=== PATIENT | male | born 1935 | race Caucasian/White ===

== ENCOUNTER 2016-09-07 08:41 | Emergency (ER) | payer MEDICARE, BC ==
[2016-09-07] MEDS ORDERED: Aspirin 81 MG Tab.Chew PO ONE (08:55)
--- NOTE | 2016-09-07 09:00 | EDM.PDOC ---
ED UPPER BACK/NECK PAIN/INJURY - General Chief Complaint: Back Pain or Injury Stated Complaint: BACK PAIN Time Seen by Provider: 09/07/16 08:45 Source of Information: Reports: Patient History Limitations: Reports: No limitations - History of Present Illness INITIAL COMMENTS - FREE TEXT/NARRATIVE: This 80 yo male patient reports to the ED from the [facility] with a 4 day history of increasing pain in his back. The patient reports his pain started Sunday and has been getting progressively worse. The patient reports he took 2 Ainsworth (5/325) this morning, but has had no symptom relief. The patient was seen by the Chiropractor yesterday (had a message and accupuncture) with some improvement during treatment. The patient has a history of chronic neck pain ( neurosurg. consult resulted in non-surgical management). The patient also has a history of CHF and CAD. The patient reports his heart is currently functioning at 25% of normal and is supposed to be scheduled for a pacemaker sometime in the near future. The patient denies any recent history of falls or injuries. The patient's personal history, family history and medication list were reviewed. 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: Other medication(s) (Ainsworth) - Related Data Allergies/ADRs: Allergies Allergy/AdvReac Type Severity Reaction Status Date / Time Iodinated Contrast Media - Allergy Hives Verified 09/07/16 09:19 Oral and lisinopril Allergy Nausea Verified 09/07/16 09:19 morphine Allergy Nausea Verified 07/20/15 18:12 hydrochlorothiazide AdvReac Dizziness Verified 09/07/16 09:19 olmesartan medoxomil AdvReac Nausea Verified 09/07/16 09:19 [From Benicar] mold Allergy Itching Uncoded 09/07/16 09:19 tape Allergy Itching Uncoded 07/20/15 18:12 xray dye Allergy Hives Uncoded 07/20/15 18:12 Home Meds: Home Meds Ascorbic Acid [Vitamin C] 1,000 mg PO DAILY 05/20/13 [History] Aspirin [Ecotrin] 325 mg PO DAILY 05/20/13 [History] Cholecalciferol (Vitamin D3) [Vitamin D] 2,000 unit PO DAILY 05/20/13 [History] Furosemide [Furosemide] 40 mg PO BID 05/20/13 [History] Nitroglycerin [Nitrostat] 0.4 mg PO ATDISCHARGE PRN 05/20/13 [History] Folic Acid 0.8 mg PO DAILY 11/25/14 [History] Magnesium Oxide 250 mg PO DAILY 11/25/14 [History] Zinc 50 mg PO DAILY 11/25/14 [History] Carvedilol 6.25 mg PO BID 09/07/16 [History] Hydrocodone/Acetaminophen [Hydrocodon-Acetaminophen 5-325] 1 each PO ASDIRECTED 09/07/16 [History] Metolazone [Zaroxolyn] 5 mg PO DAILY 09/07/16 [History] Omeprazole 20 mg PO DAILY 09/07/16 [History] Potassium Chloride [Klor-Con M20] 20 meq PO BID 09/07/16 [History] Tamsulosin HCl [Flomax] 0.4 mg PO DAILY 09/07/16 [History] Vitamin K2 0 mcg PO ASDIRECTED 09/07/16 [History] Past Medical History Other Cardiovascular History: DYSLIPIDEMIA Other Gastrointestinal History: GI bleed Other Endocrine/Metabolic History: IMPAIRED FASTING BLOOD SUGAR - Past Surgical History Other Cardiovascular Surgeries/Procedures: AORTIC VALVE REPAIR, MITRAL VALVE REPAIR GI Surgical History: Reports: Colonoscopy Other Musculoskeletal Surgeries/Procedures:: JOINT REPLACEMENT R KNEE & R SHOULDER Social & Family History - Tobacco Use Smoking Status *Q: Never Smoker Second Hand Smoke Exposure: No - Caffeine Use Caffeine Use: Reports: None - Alcohol Use Days Per Week of Alcohol Use: 7 Number of Drinks Per Day: 1 Total Drinks Per Week: 7 - Recreational Drug Use Recreational Drug Use: No - Living Situation & Occupation Living situation: Reports: Occupation: retired ED ROS GENERAL - Review of Systems Review Of Systems: ROS reveals no pertinent complaints other than HPI. ED EXAM, UPPER BACK/NECK PAIN - Physical Exam Exam: See Below Exam Limited By: No limitations General Appearance: alert, WD/WN, moderate distress, obese Eye Exam: bilateral eye: EOMI, normal inspection, PERRL Nose Exam: normal inspection, normal mucousa, no blood Throat/Mouth Exam: Normal inspection, Normal lips, Normal teeth, Normal gums, Normal oropharynx, Normal voice, No airway compromise Head Exam: atraumatic, normocephalic Neck Exam: tenderness (chronic neck pain), tender lateral (bilateral) Nexus Criteria: No: posterior, midline cervical tenderness, evidence of intoxication, altered level of consciousness, focal neurological deficit, painful distracting injuries Cardiovascular/Respiratory: regular rate, rhythm, no M/R/G, normal peripheral pulses GI/Abdominal: normal bowel sounds, soft, non tender, no organomegaly, no distention, no abnormal bruit, no mass, other (obese) (Male) Exam: Deferred Rectal (Males) Exam: Deferred Back Exam: normal inspection, decreased range of motion (mid upper back ), paraspinal tenderness (mid upper back ), vertebral tenderness (mid upper back) Extremities: normal inspection, normal range of motion, non-tender, no pedal edema, normal capillary refill Neurologic: medical appointment scheduler II-XII nml as tested, no motor/sensory deficits, alert, normal mood/affect, oriented x 3 Psychiatric: normal affect, normal mood Skin Exam: Normal color, Warm/dry Lymphatic: no adenopathy Course - Vital Signs Last Recorded V/S: Last Vital Signs Temp 36.1 C 09/07/16 08:46 Pulse 91 09/07/16 09:41 Resp 18 09/07/16 09:41 BP 106/60 09/07/16 09:41 Pulse Ox 94 L 09/07/16 09:41 - Orders/Labs/Meds Orders: Active Orders 24 hr Category Date Time Status EKG Documentation Completion [RC] URGENT Care 09/07/16 08:51 Active Labs: Laboratory Tests 09/07/16 09/07/16 09/07/16 Range/Units 09:12 09:12 10:56 WBC 8.7 (5.0-10.0) 10^3/uL RBC 4.57 L (4.6-6.2) 10^6/uL Hgb 13.0 L (14.0-18.0) g/dL Hct 40.5 (40.0-54.0) % MCV 88.6 (80-100) fL MCH 28.4 (27.0-34.0) pg MCHC 32.1 L (33.0-35.0) g/dL Plt Count 181 (150-450) 10^3/uL Neut % (Auto) 78.2 H (42.2-75.2) % Lymph % (Auto) 4.8 L (20.5-50.1) % [place] % (Auto) 14.7 H (2-8) % Eos % (Auto) 1.7 (1.0-3.0) % Baso % (Auto) 0.6 (0.0-1.0) % Sodium 137 (135-145) mmol/L Potassium 2.7 L (3.6-5.0) mmol/L Chloride 96 L (101-111) mmol/L Carbon Dioxide 30.0 (21.0-31.0) mmol/L Anion Gap 13.7 BUN 45 H (7-18) mg/dL Creatinine 1.3 (0.6-1.3) mg/dL Est Cr Clr Drug Dosing 42.26 mL/min Estimated GFR (MDRD) 53 BUN/Creatinine Ratio 34.61 Glucose 108 H (74-105) mg/dL Calcium 8.3 L (8.4-10.2) mg/dl Total Bilirubin 1.5 H (0.2-1.0) mg/dL AST 38 (10-42) IU/L ALT 17 (10-60) IU/L Alkaline Phosphatase 244 H (42-121) IU/L Troponin I 0.05 H* (0.00-0.02) ng/ml Total Protein 6.5 L (6.7-8.2) g/dl Albumin 3.1 L (3.2-5.5) g/dl Globulin 3.4 Albumin/Globulin Ratio 0.91 Urine Color Yellow (YELLOW) Urine Appearance Clear (CLEAR) Urine pH 5.5 (5.0-9.0) Ur Specific [place] 1.010 (1.005-1.030) Urine Protein Negative (NEGATIVE) Urine Glucose (UA) Negative (NEGATIVE) Urine Ketones Negative (NEGATIVE) Urine Occult Blood Negative (NEGATIVE) Urine Nitrite Negative (NEGATIVE) Urine Bilirubin Negative (NEGATIVE) Urine Urobilinogen 0.2 (0.2-1.0) mg/dL Ur Leukocyte Esterase Negative (NEGATIVE) Urine RBC 0-5 /HPF Urine WBC 5-10 H (0-5/HPF) /HPF Ur Epithelial Cells Few /HPF Urine Bacteria Few (0-FEW/HPF) /HPF Meds: Medications Discontinued Medications Generic Name Dose Route Start Last Admin Trade Name Marcelino PRN Reason Stop Dose Admin Aspirin 324 mg 09/07/16 08:55 09/07/16 08:59 Aspirin PO 09/07/16 08:56 324 mg ONETIME ONE Administration Hydromorphone HCl 0.5 mg 09/07/16 09:44 09/07/16 09:52 Dilaudid IVPUSH 09/07/16 09:45 0.5 mg ONETIME ONE Administration Potassium Chloride 10 meq/ 100 mls @ 100 mls/hr 09/07/16 09:44 09/07/16 09:56 Premix IV 09/07/16 10:43 100 mls/hr ONETIME ONE Administration - Re-Assessments/Exams Free Text/Narrative Re-Assessment/Exam: 09/07/16 09:53 The patient and his were advised of the examination, lab and chest x-ray results. An order was placed for x-rays of his T-spine, IV potassium and IV dilaudid. Departure - Departure Time of Disposition: 11:28 Disposition: Home, Self-Care 01 Condition: fair Clinical Impression: Thoracic spine pain Instructions: Back Pain, Adult, [id number], Pain Medicine Instructions, Easy- to-Read, Muscle Strain, [id number], Chronic Back Pain Forms: ED Department Discharge Care Plan Goals: The patient was advised of the examination, lab, EKG, and x-ray results during the visit. The patient was given an IV dose of Dilaudid while in the ED. The patient was discharged with a script for Percocet (5/325) #20 to take 1 by mouth every 8 hours. The patient was encouraged to use MiraLax to keep his bowels moving. If the patient has any additional symptoms or further concerns, the patient should follow-up with his primary care facility or return to the emergency department. - My Orders Last 24 Hours: My Active Orders 09/07/16 08:51 EKG Documentation Completion [RC] URGENT - Assessment/Plan Last 24 Hours: My Active Orders 09/07/16 08:51 EKG Documentation Completion [RC] URGENT
--- NOTE | 2016-09-07 09:30 | CR ---
Clinical history: 80-year-old male with history of heart disease and now upper back pain. Interpretation: AP portable chest documents total orthopedic replacement right shoulder and sternoto my wires with mediastinal clips. Chronic cardiomegaly with additional increased pulmonary venous congestion and apparent small depend ent pleural effusions typical of cardiovascular decompensation since 20 July 2015 (comparison film). No lung mass, hilar lymphadenopathy or focal lobar pneumonia. CONCLUSION: Mild CHF. Myocardial infarction?
[2016-09-07] MEDS ORDERED: Potassium Chloride 10 MEQ in Premix Bag 1 BAG IV ONE (09:44)
[2016-09-07] MEDS ORDERED: HYDROmorphone 1 MG/ML Syringe IVPUSH ONE (09:44)
--- NOTE | 2016-09-07 11:01 | CR ---
Clinical history: 80-year-old male upper back pain. Interpretation: General osteopenia and mild kyphosis mid dorsal spine. 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 interspace narrowing, endplate sclerosis and hypertrophic marginal spondylosis. No sign of pathologic skeletal lesion, definite fracture or spondylolisthesis however.... there is subtle decreased vertical height T6 vertebral body and if there is point tenderness to this area suggest MRI (STIR sequences) may prove helpful. Posterior ribs unremarkable. Sternotomy wires and pronounced cardiomegaly. Orthopedic prosthesis right shoulder.
[2016-09-07 12:12] VITALS: BP 106/70
--- NOTE | 2016-09-11 13:24 | EKG ---
09/07/2016- IESHA FOX - Twelve-lead EKG shows atrial fibrillation with heart rate of 94, nonspecific ST- T wave changes noted on lead V2, V3, with peaked T-waves, and nonspecific interventricular conduction delay with possible bundle branch block. No significant ST elevation or ST depression noted on this 12-lead EKG. [facility] /[id number]
== END 2016-09-07 11:46 | disposition home or self-care (01) ==
LOC: DL.ED 08:41
DX: M54.6 Pain in thoracic spine (principal); E78.5 Hyperlipidemia, unspecified; Z91.09 Other allergy status, other than to drugs and biological substances; Z91.041 Radiographic dye allergy status; Z88.5 Allergy status to narcotic agent; Z88.8 Allergy status to other drugs, medicaments and biological substances; Z79.82 Long term (current) use of aspirin; Z79.899 Other long term (current) drug therapy
CPT/HCPCS: 36415; 71010; 72070; 80053; 81001; 84484; 85025; 93005; 96365; 96375; 99284; A9270; J1170; J3480

== ENCOUNTER 2019-05-12 10:30 | Emergency (ER) | payer MEDICARE, BC ==
[2019-05-12 10:53] VITALS: BP 126/63; PULSE 76
--- NOTE | 2019-05-12 11:09 | EDM.PDOC ---
ED HPI GENERAL MEDICAL PROBLEM - General Chief Complaint: General Stated Complaint: LOW POTASSIUM Time Seen by Provider: 05/12/19 11:01 Source of Information: Reports: Patient History Limitations: Reports: No Limitations - History of Present Illness INITIAL COMMENTS - FREE TEXT/NARRATIVE: This 83 yo male patient was sent to the ED from the [facility] due to low potassium levels. The patient reports he was having routine labs done today for an appointment later this week. After the patient returned to his home, the patient was called and told to come to the ED due to his potassium level being 2.6. The patient reports he is currently on diuretics to control his fluid levels and has had multiple changes through [place]. The patient reports he has had several similar episodes of low potassium levels. The patient report he currently feels "normal", but understands what is happening with his labs. Onset: Today Duration: Constant Location: Reports: Other Quality: Reports: Other Severity: Moderate Improves with: Reports: None Worsens with: Reports: None Associated Symptoms: Reports: No Other Symptoms - Related Data Allergies Allergy/AdvReac Type Severity Reaction Status Date / Time Iodinated Contrast Media Allergy Hives Verified 05/12/19 10:27 [Iodinated Contrast Media - Oral and] hydrochlorothiazide AdvReac Dizziness Verified 05/12/19 10:27 lisinopril AdvReac Nausea Verified 05/12/19 10:27 morphine AdvReac Nausea Verified 05/12/19 10:27 olmesartan medoxomil AdvReac Nausea Verified 05/12/19 10:27 [From Benicar] mold Allergy Itching Uncoded 05/12/19 10:27 tape Allergy Itching Uncoded 05/12/19 10:27 xray dye Allergy Hives Uncoded 05/12/19 10:27 Home Meds: Home Meds Ascorbic Acid [Vitamin C] 1,000 mg PO DAILY 05/20/13 [History] Aspirin [Ecotrin EC] 325 mg PO DAILY 05/20/13 [History] Nitroglycerin [Nitrostat] 0.4 mg PO ASDIRECTED PRN 05/20/13 [History] Folic Acid 800 mcg PO DAILY 11/25/14 [History] Zinc 50 mg PO DAILY 11/25/14 [History] Metolazone [Zaroxolyn] 5 mg PO Q3D 09/07/16 [History] Vitamin K2 1 tab PO DAILY 09/07/16 [History] carvediloL [Carvedilol] 6.25 mg PO BID 09/07/16 [History] Potassium Chloride 10 meq PO DAILY 04/09/19 [History] Sodium Bicarbonate 650 mg PO DAILY 04/09/19 [History] Acetaminophen [Acetaminophen 8 Hour] 650 mg PO Q8H PRN 05/12/19 [History] Albuterol/Ipratropium [Combivent Respimat] 2 puff IH Q6H PRN 05/12/19 [History] Febuxostat [Uloric] 80 mg PO DAILY 05/12/19 [History] Ferrous Sulfate 325 mg PO DAILY 05/12/19 [History] Furosemide [Lasix] 80 mg PO BID 05/12/19 [History] Saw/Py/Net/Pumpk/Beta/Ly/Zn/Cu [Prostate Control Softgel] 1 each PO BID [History] Spironolactone [Aldactone] 25 mg PO DAILY 05/12/19 [History] hydrOXYzine HCL [Hydroxyzine HCl] 25 mg PO DAILY PRN 05/12/19 [History] traMADol [Ultram] 50 mg PO Q6H PRN 05/12/19 [History] Past Medical History HEENT History: Reports: Allergic Rhinitis, Impaired Vision Cardiovascular History: Reports: Bypass, CAD, Heart Failure, Heart Murmur, High Cholesterol, Hypertension, Pulmonary Hypertension, Other (See Below) Other Cardiovascular History: DYSLIPIDEMIA Respiratory History: Reports: COPD, Sleep Apnea Gastrointestinal History: Reports: Diverticulosis Other Gastrointestinal History: GI bleed Genitourinary History: Reports: Renal Disease Musculoskeletal History: Reports: Osteoarthritis, Other (See Below) Other Musculoskeletal History: neck pain. spondylosis of cervical region Other Neuro History: degenerative disc disease (cervical). cervical stenosis of spinal canal Psychiatric History: Reports: None Endocrine/Metabolic History: Reports: Obesity/BMI 30+ Other Endocrine/Metabolic History: IMPAIRED FASTING BLOOD SUGAR Hematologic History: Reports: Anemia Immunologic History: Reports: None Oncologic (Cancer) History: Reports: None Dermatologic History: Reports: Cellulitis - Infectious Disease History Infectious Disease History: Reports: None - Past Surgical History Cardiovascular Surgical History: Reports: Coronary Artery Bypass Social & Family History - Family History Family Medical History: Noncontributory - Tobacco Use Smoking Status *Q: Never Smoker Second Hand Smoke Exposure: No - Caffeine Use Caffeine Use: Reports: Coffee - Recreational Drug Use Recreational Drug Use: No - Living Situation & Occupation Living situation: Reports: Occupation: Retired ED ROS GENERAL - Review of Systems Review Of Systems: Comprehensive ROS is negative, except as noted in HPI. ED EXAM, GENERAL - Physical Exam Exam: See Below Exam Limited By: No Limitations General Appearance: Alert, WD/WN, No Apparent Distress Eye Exam: Bilateral Eye: EOMI, Normal Inspection, PERRL Ears: Normal External Exam, Normal Canal, Hearing Grossly Normal, Normal TMs Nose: Normal Inspection, Normal Mucosa, No Blood Throat/Mouth: Normal Inspection, Normal Lips, Normal Teeth, Normal Gums, Normal Oropharynx, Normal Voice, No Airway Compromise Head: Atraumatic, Normocephalic Neck: Normal Inspection Respiratory/Chest: No Respiratory Distress, Lungs Clear, Normal Breath Sounds, No Accessory Muscle Use, Chest Non-Tender Cardiovascular: Normal Peripheral Pulses, Regular Rate, Rhythm, No Edema, No Gallop, No JVD, No Murmur, No Rub GI/Abdominal: Normal Bowel Sounds, Soft, Non-Tender, No Organomegaly, No Distention, No Abnormal Bruit, No Mass (Male) Exam: Deferred Rectal (Males) Exam: Deferred Back Exam: Normal Inspection, Full Range of Motion, NT Extremities: Normal Range of Motion, Non-Tender, No Pedal Edema, Normal Capillary Refill, Other (The patient has a wound on his left anterior calf that appears to be healing well. There is minimal drainage. ) Neurological: Alert, Oriented, CN II-XII Intact, Normal Cognition, Normal Gait, Normal Reflexes, No Motor/Sensory Deficits Psychiatric: Normal Affect, Normal Mood Skin Exam: Warm, Dry, Normal Color, No Rash Lymphatic: No Adenopathy Course - Vital Signs Last Recorded V/S: Last Vital Signs Temp 36.6 C 05/12/19 10:51 Pulse 76 05/12/19 10:51 Resp 16 05/12/19 10:51 BP 126/63 05/12/19 10:51 Pulse Ox 100 05/12/19 10:51 - Orders/Labs/Meds Labs: Laboratory Tests 05/12/19 05/12/19 05/12/19 Range/Units 11:10 11:10 11:10 WBC 7.2 (5.0-10.0) 10^3/uL RBC 3.75 L (4.6-6.2) 10^6/uL Hgb 10.7 L (14.0-18.0) g/dL Hct 34.5 L (40.0-54.0) % MCV 92.0 (80-100) fL MCH 28.5 (27.0-34.0) pg MCHC 31.0 L (33.0-35.0) g/dL Plt Count 186 (150-450) 10^3/uL Neut % (Auto) 78.7 H (42.2-75.2) % Lymph % (Auto) 5.4 L (20.5-50.1) % [place] % (Auto) 12.7 H (2-8) % Eos % (Auto) 2.6 (1.0-3.0) % Baso % (Auto) 0.6 (0.0-1.0) % Sodium 138 (135-145) mmol/L Potassium 2.6 L (3.6-5.0) mmol/L Chloride 98 L (101-111) mmol/L Carbon Dioxide 30.0 (21.0-31.0) mmol/L Anion Gap 12.6 BUN 70 H (7-18) mg/dL Creatinine 1.4 H (0.6-1.3) mg/dL Est Cr Clr Drug Dosing 41.38 mL/min Estimated GFR (MDRD) 49 BUN/Creatinine Ratio 50.00 Glucose 125 H (74-105) mg/dL Calcium 8.6 (8.4-10.2) mg/dl Total Bilirubin 1.9 H (0.2-1.0) mg/dL AST 47 H (10-42) IU/L ALT 21 (10-60) IU/L Alkaline Phosphatase 196 H (42-121) IU/L B-Natriuretic Peptide 410 H (0-100) pg/ml Total Protein 6.2 L (6.7-8.2) g/dl Albumin 2.6 L (3.2-5.5) g/dl Globulin 3.6 Albumin/Globulin Ratio 0.72 05/12/19 Range/Units 15:45 WBC (5.0-10.0) 10^3/uL RBC (4.6-6.2) 10^6/uL Hgb (14.0-18.0) g/dL Hct (40.0-54.0) % MCV (80-100) fL MCH (27.0-34.0) pg MCHC (33.0-35.0) g/dL Plt Count (150-450) 10^3/uL Neut % (Auto) (42.2-75.2) % Lymph % (Auto) (20.5-50.1) % [place] % (Auto) (2-8) % Eos % (Auto) (1.0-3.0) % Baso % (Auto) (0.0-1.0) % Sodium (135-145) mmol/L Potassium 2.7 L (3.6-5.0) mmol/L Chloride (101-111) mmol/L Carbon Dioxide (21.0-31.0) mmol/L Anion Gap BUN (7-18) mg/dL Creatinine (0.6-1.3) mg/dL Est Cr Clr Drug Dosing mL/min Estimated GFR (MDRD) BUN/Creatinine Ratio Glucose (74-105) mg/dL Calcium (8.4-10.2) mg/dl Total Bilirubin (0.2-1.0) mg/dL AST (10-42) IU/L ALT (10-60) IU/L Alkaline Phosphatase (42-121) IU/L B-Natriuretic Peptide (0-100) pg/ml Total Protein (6.7-8.2) g/dl Albumin (3.2-5.5) g/dl Globulin Albumin/Globulin Ratio Meds: Medications Discontinued Medications Generic Name Dose Route Start Last Admin Trade Name Freq PRN Reason Stop Dose Admin Potassium Chloride 20 meq/ 100 mls @ 50 mls/hr 05/12/19 11:42 05/12/19 12:06 Premix IV 05/12/19 13:41 50 mls/hr ONETIME ONE Administration Lidocaine HCl 1 ml 05/12/19 11:44 05/12/19 12:06 Xylocaine-Mpf 1% INJECT 05/12/19 11:45 1 ml ONETIME ONE Administration Potassium Chloride 40 meq 05/12/19 16:02 05/12/19 16:16 Klor-Con 10 PO 05/12/19 16:03 40 meq ONETIME ONE Administration Departure - Departure Time of Disposition: 16:33 Disposition: Home, Self-Care 01 Condition: Fair Clinical Impression: Hypokalemia - Discharge Information *PRESCRIPTION DRUG MONITORING PROGRAM REVIEWED*: Not Applicable *COPY OF PRESCRIPTION DRUG MONITORING REPORT IN PATIENT YISSEL: Not Applicable Instructions: Hypokalemia Forms: ED Department Discharge Care Plan Goals: The patient was given IV potassium and oral potassium while in the hospital. The patient was encouraged to follow-up with his primary care facility as scheduled. If the patient has any additional symptoms or concerns, the patient should either return to the emergency department or visit his primary care facility. Sepsis Event Note - Evaluation Sepsis Screening Result: No Definite Risk - Focused Exam Vital Signs: Vital Signs Temp Pulse Resp BP Pulse Ox 05/12/19 10:51 36.6 C 76 16 126/63 100 Date Exam was Performed: 05/12/19 Time Exam was Performed: 16:33
[2019-05-12 11:39] LABS: ANION GAP 12.6
[2019-05-12] MEDS ORDERED: Potassium Chloride 20 MEQ in Premix Bag 1 BAG IV ONE (11:42)
[2019-05-12] MEDS ORDERED: Lidocaine 1% 30 ML SDV INJECT ONE (11:44)
[2019-05-12] MEDS ORDERED: Potassium Chloride 10 MEQ Tab.ER PO ONE (16:02)
== END 2019-05-12 17:00 | disposition home or self-care (01) ==
LOC: DL.ED 10:30
DX: E87.6 Hypokalemia (principal); I25.10 Atherosclerotic heart disease of native coronary artery without angina pectoris; I11.0 Hypertensive heart disease with heart failure; I50.9 Heart failure, unspecified; J44.9 Chronic obstructive pulmonary disease, unspecified; E66.9 Obesity, unspecified; Z91.041 Radiographic dye allergy status; Z88.8 Allergy status to other drugs, medicaments and biological substances; Z88.5 Allergy status to narcotic agent; Z91.048 Other nonmedicinal substance allergy status; Z79.82 Long term (current) use of aspirin; Z79.899 Other long term (current) drug therapy; Z68.30 Body mass index [BMI] 30.0-30.9, adult
CPT/HCPCS: 36415; 80053; 83880; 84132; 85025; 96365; 96366; 99284-25; A9270-GY; J2001; J3480

== ENCOUNTER 2020-03-06 11:31 | Emergency (ER) | payer MEDICARE, BC ==
[~2020-03-06 11:31] MED LIST: Diltiazem 25 MG/5 ML SDV IVPUSH ONE
[2020-03-06] MEDS ORDERED: Furosemide 40 MG/4 ML VIAL IVPUSH ONE ×2 (11:43→17:12)
--- NOTE | 2020-03-06 11:49 | EDM.PDOC ---
ED HPI GENERAL MEDICAL PROBLEM - General Chief Complaint: Cardiovascular Problem Stated Complaint: AMBULANCE Time Seen by Provider: 03/06/20 11:40 Source of Information: Reports: EMS, Family () History Limitations: Reports: No Limitations - History of Present Illness INITIAL COMMENTS - FREE TEXT/NARRATIVE: This 84 yo male patient was brought to the ED by [facility] and [facility] due to increased shortness of breath and tachycardia. The patient's reports the patient did not come out of his room this morning at the normal time. When she went into his room, the patient's lips were blue and the patient was having difficulties breathing. The patient has a history of CHF and has been having difficulties getting the excess fluid off the patient. Onset: Today Duration: Constant Location: Reports: Chest Quality: Reports: Other Severity: Severe Improves with: Reports: None Worsens with: Reports: None Context: Reports: Other Associated Symptoms: Reports: Shortness of Breath Treatments [employer]: Reports: Oxygen (by EMS) - Related Data Allergies Allergy/AdvReac Type Severity Reaction Status Date / Time Iodinated Contrast Media Allergy Hives Verified 05/12/19 10:27 [Iodinated Contrast Media - Oral and] hydrochlorothiazide AdvReac Dizziness Verified 05/12/19 10:27 lisinopril AdvReac Nausea Verified 05/12/19 10:27 morphine AdvReac Nausea Verified 05/12/19 10:27 olmesartan medoxomil AdvReac Nausea Verified 05/12/19 10:27 [From Og] mold Allergy Itching Uncoded 05/12/19 10:27 tape Allergy Itching Uncoded 05/12/19 10:27 xray dye Allergy Hives Uncoded 05/12/19 10:27 Home Meds: Home Meds Ascorbic Acid [Vitamin C] 1,000 mg PO DAILY 05/20/13 [History] Aspirin [Ecotrin EC] 325 mg PO DAILY 05/20/13 [History] Nitroglycerin [Nitrostat] 0.4 mg PO ASDIRECTED PRN 05/20/13 [History] Folic Acid 800 mcg PO DAILY 11/25/14 [History] Zinc 50 mg PO DAILY 11/25/14 [History] Metolazone [Zaroxolyn] 5 mg PO Q3D 09/07/16 [History] Vitamin K2 1 tab PO DAILY 09/07/16 [History] carvediloL [Carvedilol] 6.25 mg PO BID 09/07/16 [History] Potassium Chloride 10 meq PO DAILY 04/09/19 [History] Sodium Bicarbonate 650 mg PO DAILY 04/09/19 [History] Acetaminophen [Acetaminophen 8 Hour] 650 mg PO Q8H PRN 05/12/19 [History] Albuterol/Ipratropium [Combivent Respimat] 2 puff IH Q6H PRN 05/12/19 [History] Febuxostat [Uloric] 80 mg PO DAILY 05/12/19 [History] Ferrous Sulfate 325 mg PO DAILY 05/12/19 [History] Furosemide [Lasix] 80 mg PO BID 05/12/19 [History] Saw/Py/Net/Pumpk/Beta/Ly/Zn/Cu [Prostate Control Softgel] 1 each PO BID 05/12/19 [History] Spironolactone [Aldactone] 25 mg PO DAILY 05/12/19 [History] hydrOXYzine HCL [Hydroxyzine HCl] 25 mg PO DAILY PRN 05/12/19 [History] traMADol [Ultram] 50 mg PO Q6H PRN 05/12/19 [History] Past Medical History HEENT History: Reports: Allergic Rhinitis, Impaired Vision Cardiovascular History: Reports: Bypass, CAD, Heart Failure, Heart Murmur, High Cholesterol, Hypertension, Pulmonary Hypertension, Other (See Below) Other Cardiovascular History: DYSLIPIDEMIA Respiratory History: Reports: COPD, Sleep Apnea Gastrointestinal History: Reports: Diverticulosis Other Gastrointestinal History: GI bleed Genitourinary History: Reports: Renal Disease Musculoskeletal History: Reports: Osteoarthritis, Other (See Below) Other Musculoskeletal History: neck pain. spondylosis of cervical region Other Neuro History: degenerative disc disease (cervical). cervical stenosis of spinal canal Psychiatric History: Reports: None Endocrine/Metabolic History: Reports: Obesity/BMI 30+ Other Endocrine/Metabolic History: IMPAIRED FASTING BLOOD SUGAR Hematologic History: Reports: Anemia Immunologic History: Reports: None Oncologic (Cancer) History: Reports: None Dermatologic History: Reports: Cellulitis - Infectious Disease History Infectious Disease History: Reports: None - Past Surgical History Cardiovascular Surgical History: Reports: Coronary Artery Bypass Social & Family History - Family History Family Medical History: Noncontributory - Caffeine Use Caffeine Use: Reports: Coffee - Living Situation & Occupation Living situation: Reports: Occupation: Retired [employer] GENERAL - Review of Systems Review Of Systems: Comprehensive ROS is negative, except as noted in HPI. ED EXAM, GENERAL - Physical Exam Exam: See Below Exam Limited By: Altered Mental Status General Appearance: Alert, Severe Distress, Obese Eye Exam: Bilateral Eye: EOMI, Normal Inspection, PERRL Ears: Normal External Exam, Normal Canal, Hearing Grossly Normal, Normal TMs Nose: Normal Inspection, Normal Mucosa, No Blood Throat/Mouth: Normal Inspection, Normal Lips, Normal Teeth, Normal Gums, Normal Oropharynx, Normal Voice, No Airway Compromise Head: Atraumatic, Normocephalic Neck: Normal Inspection, Supple, Non-Tender, Full Range of Motion Respiratory/Chest: Respiratory Distress, Decreased Breath Sounds Cardiovascular: Tachycardia GI/Abdominal: Normal Bowel Sounds, Soft, Non-Tender, No Organomegaly, No Distention, No Abnormal Bruit, No Mass (Male) Exam: Deferred Rectal (Males) Exam: Deferred Back Exam: Normal Inspection, Full Range of Motion, NT Extremities: Pedal Edema Neurological: Alert Psychiatric: Normal Affect, Normal Mood Skin Exam: Warm, Dry, Intact, Normal Color, No Rash Lymphatic: No Adenopathy Course - Vital Signs Last Recorded V/S: Last Vital Signs Temp 38.6 C H 03/06/20 11:15 Pulse 145 H 03/06/20 11:15 Resp 40 H 03/06/20 11:15 BP 146/63 H 03/06/20 11:15 Pulse Ox 95 03/06/20 11:15 - Orders/Labs/Meds Orders: Active Orders 24 hr Category Date Time Status EKG Documentation Completion [RC] STAT Care 03/06/20 11:18 Active CULTURE BLOOD [BC] Stat Lab 03/06/20 11:28 Received CULTURE BLOOD [BC] Stat Lab 03/06/20 11:31 Results Azithromycin [Zithromax] 500 mg Med 03/06/20 17:11 Ordered Sodium Chloride 0.9% [Normal Saline (AdvBag)] 250 ml IV ONETIME Blood Culture x2 Reflex Set [OM.PC] Stat Oth 03/06/20 11:18 Ordered Medication Orders Azithromycin 500 mg/ Sodium (Chloride) 250 mls @ 250 mls/hr IV ONETIME ONE Stop: 03/06/20 18:10 Labs: Laboratory Tests 03/06/20 03/06/20 03/06/20 Range/Units 11:15 11:28 11:28 WBC 26.1 H* (5.0-10.0) 10^3/uL RBC 4.00 L (4.6-6.2) 10^6/uL Hgb 11.7 L (14.0-18.0) g/dL Hct 37.6 L (40.0-54.0) % MCV 94.0 (80-100) fL MCH 29.3 (27.0-34.0) pg MCHC 31.1 L (33.0-35.0) g/dL Plt Count 169 (150-450) 10^3/uL Neut % (Auto) 91.6 H (42.2-75.2) % Lymph % (Auto) 1.0 L (20.5-50.1) % Reeves % (Auto) 7.3 (2-8) % Eos % (Auto) 0.0 L (1.0-3.0) % Baso % (Auto) 0.1 (0.0-1.0) % PT 14.4 H (9.0-12.0) SEC INR 1.5 H (0.9-1.2) D-Dimer, Quantitative 3910 H (0-400) ng/mL Sodium (136-145) mmol/L Potassium (3.5-5.1) mmol/L Chloride (98-107) mmol/L Carbon Dioxide (21-32) mmol/L Anion Gap (7-13) mEq/L BUN (7-18) mg/dL Creatinine (0.70-1.30) mg/dL Est Cr Clr Drug Dosing mL/min Estimated GFR (MDRD) BUN/Creatinine Ratio (No establ ref range) Glucose (74-99) mg/dL Lactic Acid (0.4-2.0) mmol/L Calcium (8.5-10.1) mg/dL Total Bilirubin (0.2-1.0) mg/dL AST (15-37) U/L ALT (16-63) U/L Alkaline Phosphatase (46-116) U/L Ammonia (11-32) umol/L Troponin I (0.000-0.056) ng/mL B-Natriuretic Peptide (0-100) pg/ml Total Protein (6.4-8.2) g/dL Albumin (3.4-5.0) g/dL Globulin Albumin/Globulin Ratio Amylase (25-115) U/L Lipase (73-393) U/L SARS CoV-2 RNA Rapid HONEY Negative (NEGATIVE) 03/06/20 03/06/20 03/06/20 Range/Units 11:28 11:28 11:28 WBC (5.0-10.0) 10^3/uL RBC (4.6-6.2) 10^6/uL Hgb (14.0-18.0) g/dL Hct (40.0-54.0) % MCV (80-100) fL MCH (27.0-34.0) pg MCHC (33.0-35.0) g/dL Plt Count (150-450) 10^3/uL Neut % (Auto) (42.2-75.2) % Lymph % (Auto) (20.5-50.1) % Reeves % (Auto) (2-8) % Eos % (Auto) (1.0-3.0) % Baso % (Auto) (0.0-1.0) % PT (9.0-12.0) SEC INR (0.9-1.2) D-Dimer, Quantitative (0-400) ng/mL Sodium 142 (136-145) mmol/L Potassium 3.6 (3.5-5.1) mmol/L Chloride 108 H (98-107) mmol/L Carbon Dioxide 24 (21-32) mmol/L Anion Gap 13.6 H (7-13) mEq/L BUN 61 H (7-18) mg/dL Creatinine 2.49 H (0.70-1.30) mg/dL Est Cr Clr Drug Dosing 22.87 mL/min Estimated GFR (MDRD) 25 BUN/Creatinine Ratio 24.5 (No establ ref range) Glucose 75 (74-99) mg/dL Lactic Acid 3.3 H* (0.4-2.0) mmol/L Calcium 8.3 L (8.5-10.1) mg/dL Total Bilirubin 1.9 H (0.2-1.0) mg/dL AST 74 H (15-37) U/L ALT 34 (16-63) U/L Alkaline Phosphatase 367 H (46-116) U/L Ammonia 27 (11-32) umol/L Troponin I 0.690 H* (0.000-0.056) ng/mL B-Natriuretic Peptide 476 H (0-100) pg/ml Total Protein 5.4 L (6.4-8.2) g/dL Albumin 2.0 L (3.4-5.0) g/dL Globulin 3.4 Albumin/Globulin Ratio 0.59 Amylase 94 (25-115) U/L Lipase 106 (73-393) U/L SARS CoV-2 RNA Rapid HONEY (NEGATIVE) 03/06/20 Range/Units 15:45 WBC (5.0-10.0) 10^3/uL RBC (4.6-6.2) 10^6/uL Hgb (14.0-18.0) g/dL Hct (40.0-54.0) % MCV (80-100) fL MCH (27.0-34.0) pg MCHC (33.0-35.0) g/dL Plt Count (150-450) 10^3/uL Neut % (Auto) (42.2-75.2) % Lymph % (Auto) (20.5-50.1) % Reeves % (Auto) (2-8) % Eos % (Auto) (1.0-3.0) % Baso % (Auto) (0.0-1.0) % PT (9.0-12.0) SEC INR (0.9-1.2) D-Dimer, Quantitative (0-400) ng/mL Sodium (136-145) mmol/L Potassium (3.5-5.1) mmol/L Chloride (98-107) mmol/L Carbon Dioxide (21-32) mmol/L Anion Gap (7-13) mEq/L BUN (7-18) mg/dL Creatinine (0.70-1.30) mg/dL Est Cr Clr Drug Dosing mL/min Estimated GFR (MDRD) BUN/Creatinine Ratio (No establ ref range) Glucose (74-99) mg/dL Lactic Acid 3.0 H* (0.4-2.0) mmol/L Calcium (8.5-10.1) mg/dL Total Bilirubin (0.2-1.0) mg/dL AST (15-37) U/L ALT (16-63) U/L Alkaline Phosphatase (46-116) U/L Ammonia (11-32) umol/L Troponin I (0.000-0.056) ng/mL B-Natriuretic Peptide (0-100) pg/ml Total Protein (6.4-8.2) g/dL Albumin (3.4-5.0) g/dL Globulin Albumin/Globulin Ratio Amylase (25-115) U/L Lipase (73-393) U/L SARS CoV-2 RNA Rapid HONEY (NEGATIVE) Meds: Medications Generic Name Dose Route Start Last Admin Trade Name Freq PRN Reason Stop Dose Admin Azithromycin 500 mg/ Sodium 250 mls @ 250 mls/hr 03/06/20 17:11 Chloride IV 03/06/20 18:10 ONETIME ONE Discontinued Medications Generic Name Dose Route Start Last Admin Trade Name Freq PRN Reason Stop Dose Admin Diltiazem HCl 20 mg 03/06/20 11:25 03/06/20 11:36 Diltiazem IVPUSH 03/06/20 11:26 20 mg ONETIME ONE Administration Furosemide 40 mg 03/06/20 11:43 03/06/20 11:54 Lasix IVPUSH 03/06/20 11:44 40 mg NOW ONE Administration Furosemide 40 mg 03/06/20 17:12 Lasix IVPUSH 03/06/20 17:13 NOW ONE Ceftriaxone Sodium 1 gm/ 50 mls @ 100 mls/hr 03/06/20 12:26 03/06/20 12:50 Sodium Chloride IV 03/06/20 12:55 100 mls/hr ONETIME ONE Administration Departure - Departure Time of Disposition: 17:18 Disposition: DC/Tfer to [facility] 02 Reason for Transfer *Q: Other Condition: Serious Clinical Impression: Atrial fibrillation with RVR Pneumonia Qualifiers: Pneumonia type: due to unspecified organism Laterality: unspecified laterality Lung location: unspecified part of lung Qualified Code(s): J18.9 - Pneumonia, unspecified organism CHF (congestive heart failure) Qualifiers: Heart failure type: unspecified Heart failure chronicity: chronic Qualified Code(s): I50.9 - Heart failure, unspecified Forms: Interfacility Transfer EMTALA Care Plan Goals: Discussed the patient's history, examination, lab, x-ray and treatments with Dr. Angela ([facility]). Dr. Angela accepted the patient for continued evaluation and management as an inpatient at [facility]. The patient will be transported by [facility]. Sepsis Event Note (ED) - Focused Exam Vital Signs: Vital Signs Temp Pulse Resp BP Pulse Ox 03/06/20 11:15 38.6 C H 145 H 40 H 146/63 H 95 - My Orders Last 24 Hours: My Active Orders 03/06/20 11:18 EKG Documentation Completion [RC] STAT Blood Culture x2 Reflex Set [OM.PC] Stat 03/06/20 11:28 CULTURE BLOOD [BC] Stat 03/06/20 11:31 CULTURE BLOOD [BC] Stat 03/06/20 17:11 Azithromycin [Zithromax] 500 mg Sodium Chloride 0.9% [Normal Saline (AdvBag)] 250 ml IV ONETIME - Assessment/Plan Last 24 Hours: My Active Orders 03/06/20 11:18 EKG Documentation Completion [RC] STAT Blood Culture x2 Reflex Set [OM.PC] Stat 03/06/20 11:28 CULTURE BLOOD [BC] Stat 03/06/20 11:31 CULTURE BLOOD [BC] Stat 03/06/20 17:11 Azithromycin [Zithromax] 500 mg Sodium Chloride 0.9% [Normal Saline (AdvBag)] 250 ml IV ONETIME
[2020-03-06 11:50] VITALS: BP 146/63; PULSE 145
--- NOTE | 2020-03-06 11:54 | CR ---
PROCEDURE INFORMATION: Exam: XR Chest, 1 View Exam date and time: 03/06/2020 11:45 AM Age: 84 years old Clinical indication: Shortness of breath; Additional info: Short of breath TECHNIQUE: Imaging protocol: XR of the chest Views: 1 view. COMPARISON: CR Chest 1V Frontal 09/07/2016 9:21 AM FINDINGS: Tubes, catheters and devices: A left-sided AICD is present. Lungs: Moderate grade pulmonary edema with small to moderate size bilateral pleural effusions are present. Pleural space: Unremarkable. No pleural effusion. No pneumothorax. Heart/Mediastinum: The heart size is moderately enlarged. Bones/joints: Unremarkable. IMPRESSION: Moderate grade CHF.
[2020-03-06 12:01] LABS: ANION GAP 13.6 mEq/L (7-13)
[2020-03-06] MEDS ORDERED: cefTRIAXone 1 GM in Sodium Chloride 0.9% 50 ML IV ONE (12:26)
[2020-03-06] MEDS ORDERED: Azithromycin 500 MG in Sodium Chloride 0.9% 250 ML IV ONE (17:11)
== END 2020-03-06 17:55 ==
LOC: DL.ED 11:31
DX: I50.9 Heart failure, unspecified (principal); J18.9 Pneumonia, unspecified organism; I48.91 Unspecified atrial fibrillation; I25.10 Atherosclerotic heart disease of native coronary artery without angina pectoris; I11.0 Hypertensive heart disease with heart failure; E78.00 Pure hypercholesterolemia, unspecified; J44.9 Chronic obstructive pulmonary disease, unspecified; E66.9 Obesity, unspecified; Z20.828 Contact with and (suspected) exposure to other viral communicable diseases; Z79.82 Long term (current) use of aspirin; Z79.899 Other long term (current) drug therapy; Z91.041 Radiographic dye allergy status; Z88.2 Allergy status to sulfonamides; Z88.5 Allergy status to narcotic agent; Z88.8 Allergy status to other drugs, medicaments and biological substances; Z91.048 Other nonmedicinal substance allergy status; Z68.29 Body mass index [BMI] 29.0-29.9, adult
CPT/HCPCS: 36415; 71045; 80053; 82140; 82150; 83605; 83690; 83880; 84484; 85025; 85379; 85610; 87040; 87077; 87186; 93005; 96365; 96367; 96375; 96376; 99285; J0456; J0696; J1940; J3490; J7050; U0002